=== PATIENT | male | born 1950 | race Caucasian/White ===

== ENCOUNTER 2023-04-10 09:45 | Day surgery (SDC) | payer OTHER ==
[~2023-04-10] VITALS: Ht 177.8 cm; Wt 122.5 kg
[2023-04-10] MEDS ORDERED: GLYCOPYRROLATE 0.2 MG/ML VIAL ONE (11:47)
[2023-04-10] MEDS: MIDAZOLAM HCL 5 MG/5 ML VIAL ONE (11:54)
[2023-04-10] MEDS: MEPERIDINE 100 MG INJ. 100 MG/ML VIAL ONE (11:54)
[2023-04-10 11:55] VITALS: O2SAT 94
[2023-04-10] MEDS ORDERED: SIMETHICONE 40 MG/0.6 ML ML ONE (12:03)
[2023-04-10 13:27] VITALS: BP_SYST 121; PULSE 80; RESP 19
== END 2023-04-10 13:10 | disposition home or self-care (01) ==
LOC: SDS 09:45 → SMU 09:45 → SDS 13:10
PROVIDERS: ATTEND Colon & Rectal Surgery
DX: Z12.11 Encounter for screening for malignant neoplasm of colon (principal); D12.2 Benign neoplasm of ascending colon; D12.3 Benign neoplasm of transverse colon; K62.1 Rectal polyp; K57.30 Diverticulosis of large intestine without perforation or abscess without bleeding; K64.9 Unspecified hemorrhoids; E11.9 Type 2 diabetes mellitus without complications; I10 Essential (primary) hypertension; E78.5 Hyperlipidemia, unspecified; M19.90 Unspecified osteoarthritis, unspecified site; Z86.010 Personal history of colon polyps; Z79.899 Other long term (current) drug therapy
CPT/HCPCS: 45385; 45380; 82948; 88305; 99153; 99152; G0378; J2250; J2175; J3490